=== PATIENT | male | born 1965 | race Caucasian/White ===

== ENCOUNTER 2024-02-15 19:17 | Emergency (ER) | payer BC ==
[~2024-02-15] VITALS: Ht 188 cm; Wt 124.0 kg
[2024-02-15 19:19] VITALS: TEMP 97.7
[2024-02-15] MEDS: acetaminophen 1,000mg/100ml IV 100 ML IV ONE (20:08)
[2024-02-15] MEDS: ondansetron/PF 4mg/2ml inj IV ONE (20:08)
[2024-02-15 20:16] LABS: BASOPHILS # (AUTO) 0.1 X10'3 (0-0.2); BASOPHILS % (AUTO) 0.7 % (0-1); EOSINOPHILS # (AUTO) 0.1 X10'3 (0-0.9); EOSINOPHILS % (AUTO) 0.8 % (0-6); HEMATOCRIT 48.6 % (42.0-52.0); HEMOGLOBIN 16.7 g/dl (14.0-17.9); LYMPHOCYTES % (AUTO) 9.1 % (21-51); MEAN CORPUSCULAR HEMOGLOBIN 30.8 PG (27.0-31.0); MEAN CORPUSCULAR HGB CONC 34.4 g/dL (33.0-36.5); MEAN CORPUSCULAR VOLUME 89.4 FL (78-98); MEAN PLATELET VOLUME 8.7 FL (7.4-10.4); MONOCYTES # (AUTO) 0.8 X10'3 (0-0.9); MONOCYTES % (AUTO) 7.1 % (2-12); NEUTROPHILS # (AUTO) 9.3 X10'3 (1.8-7.7); NEUTROPHILS % (AUTO) 82.3 % (42-75); PLATELET COUNT 237 X10'3 (140-440); RED BLOOD COUNT 5.44 X10'6 (4.70-6.10); RED CELL DISTRIBUTION WIDTH 13.7 % (11.5-14.5); WHITE BLOOD COUNT 11.3 X10'3 (4.5-11.0)
[2024-02-15 20:29] LABS: ALANINE AMINOTRANSFERASE 80 U/L (12-78); ALBUMIN 4.4 G/DL (3.4-5.0); ALBUMIN/GLOBULIN RATIO 1.2 (1.1-1.5); ALKALINE PHOSPHATASE 40 IU/L (46-116); ANION GAP 11 (8-16); ASPARTATE AMINO TRANSFERASE 21 U/L (10-37); BILIRUBIN,TOTAL 0.6 MG/DL (0.1-1.0); BLOOD UREA NITROGEN 8 MG/DL (7-18); BUN/CREATININE RATIO 6.3 (10.0-20.0); CALCIUM 8.9 MG/DL (8.5-10.1); CHLORIDE 105 MMOL/L (99-107); CREATININE 1.26 MG/DL (0.60-1.10); GLUCOSE 111 MG/DL (70-104); LIPASE 39 U/L (16-77); POTASSIUM 4.1 MMOL/L (3.5-5.1); SODIUM 141 MMOL/L (135-145); TOTAL CARBON DIOXIDE 24.8 MMOL/L (24-32); eCRCL 76 ML/MIN; eGFR 59 ML/MIN
[2024-02-15] MEDS ORDERED: PHEN-716 PO (21:23)
[2024-02-15] MEDS ORDERED: FLO0.4C PO (21:23)
[2024-02-15] MEDS ORDERED: HYDR-3973 PO (21:23)
[2024-02-15] MEDS ORDERED: ONDA8TAB13 PO (21:23)
[2024-02-15] MEDS: HYDROcodone/acetaminophen 10/325mg tab PO ONE (21:36)
[2024-02-15] MEDS: phenazopyridine 100mg tablet PO ONE (21:36)
[2024-02-15] MEDS: tamsulosin 0.4mg capsule PO SCH (21:37)
[2024-02-15 21:52] VITALS: BP 127/82; PULSE 71; RESP 16; O2SAT 95
== END 2024-02-15 21:54 | disposition home or self-care (01) ==
LOC: ER 19:18
DX: N20.0 Calculus of kidney (principal)
CPT/HCPCS: 36415; 74176; 80053; 83690; 85025; 96374; 96375; 99285; J0131; J2405

== ENCOUNTER 2024-02-17 15:58 | Inpatient (IN) | payer BC ==
[~2024-02-17] VITALS: Ht 188 cm; Wt 125.0 kg
[~2024-02-17 15:58] MED LIST: FLO0.4C PO; HYDR-3973 PO; ONDA8TAB13 PO; PHEN-716 PO
[2024-02-17] MEDS ORDERED: ketorolac trometh. 30mg/ml inj. IV ONE (17:35)
[2024-02-17] MEDS: ondansetron/PF 4mg/2ml inj IV ONE (18:21)
[2024-02-17] MEDS: ketorolac tromethamine 15mg/ml inj. IV ONE (18:22)
[2024-02-17] MEDS: normal saline 1000ml 1,000 ML IV ONE (18:22)
[2024-02-17 18:32] LABS: BASOPHILS # (AUTO) 0.1 X10'3 (0-0.2); BASOPHILS % (AUTO) 0.5 % (0-1); EOSINOPHILS % (AUTO) 0.1 % (0-6); HEMATOCRIT 46.7 % (42.0-52.0); LYMPHOCYTES # (AUTO) 0.9 X10'3 (1.1-4.8); LYMPHOCYTES % (AUTO) 6.1 % (21-51); MEAN CORPUSCULAR HEMOGLOBIN 30.6 PG (27.0-31.0); MEAN CORPUSCULAR HGB CONC 34.2 g/dL (33.0-36.5); MEAN CORPUSCULAR VOLUME 89.7 FL (78-98); MEAN PLATELET VOLUME 8.6 FL (7.4-10.4); MONOCYTES # (AUTO) 0.7 X10'3 (0-0.9); MONOCYTES % (AUTO) 5.2 % (2-12); NEUTROPHILS # (AUTO) 12.6 X10'3 (1.8-7.7); NEUTROPHILS % (AUTO) 88.1 % (42-75); PLATELET COUNT 262 X10'3 (140-440); RED BLOOD COUNT 5.21 X10'6 (4.70-6.10); RED CELL DISTRIBUTION WIDTH 13.7 % (11.5-14.5); WHITE BLOOD COUNT 14.3 X10'3 (4.5-11.0)
[2024-02-17 18:45] LABS: ALANINE AMINOTRANSFERASE 72 U/L (12-78); ALBUMIN 4.6 G/DL (3.4-5.0); ALBUMIN/GLOBULIN RATIO 1.4 (1.1-1.5); ALKALINE PHOSPHATASE 36 IU/L (46-116); ANION GAP 14 (8-16); ASPARTATE AMINO TRANSFERASE 25 U/L (10-37); BILIRUBIN,TOTAL 0.8 MG/DL (0.1-1.0); BLOOD UREA NITROGEN 11 MG/DL (7-18); BUN/CREATININE RATIO 6.4 (10.0-20.0); CALCIUM 9.4 MG/DL (8.5-10.1); CHLORIDE 104 MMOL/L (99-107); CREATININE 1.72 MG/DL (0.60-1.10); GLUCOSE 140 MG/DL (70-104); POTASSIUM 3.9 MMOL/L (3.5-5.1); SODIUM 141 MMOL/L (135-145); TOTAL CARBON DIOXIDE 22.9 MMOL/L (24-32); eCRCL 56 ML/MIN; eGFR 41 ML/MIN
[2024-02-17 19:14] LABS: BILIRUBIN,URINE NEGATIVE (Neg); CLARITY,URINE CLEAR (Clear); COLOR,URINE ORANGE (Yellow); GLUCOSE, URINE 100 mg/dl (Neg); KETONES,URINE 15 mg/dl (Neg); LEUKOCYTE ESTERASE ,URINE NEGATIVE (Neg); OCCULT BLOOD,URINE TRACE-INTACT (Neg); PROTEIN,URINE 30 mg/dl (Neg)
[2024-02-17 19:22] LABS: NITRITES, URINE NEGATIVE (Neg); UA COLLECTION TYPE CLN CATCH MIDSTREAM
[2024-02-17 19:26] LABS: BACTERIA,URINE FEW /HPF (Neg); MUCUS STRANDS MANY /LPF (Neg); SQUAMOUS EPITHELIAL CELL,UR FEW /LPF (FEW); WBC,URINE 0-4 /HPF (0-4)
[2024-02-17] MEDS ORDERED: magnesium Cl slow-release 64mg tablet PO PRN (19:30)
[2024-02-17] MEDS ORDERED: magnesium hydroxide 30ml (MOM) UD suspension PO PRN (19:30)
[2024-02-17] MEDS ORDERED: potassium Cl 20 mEq SR tablet PO PRN ×2 (19:30)
[2024-02-17] MEDS ORDERED: magnesium 2GM in 50ml NS 50 ML IV PRN (19:30)
[2024-02-17] MEDS ORDERED: acetaminophen 325mg tablet PO PRN (19:30)
[2024-02-17] MEDS ORDERED: magnesium 4gm in 100ml NS 100 ML IV PRN (19:30)
[2024-02-17] MEDS ORDERED: mag hydrox/Alum hydrox/simeth 30ml oral suspension PO PRN (19:30)
[2024-02-17] MEDS ORDERED: potassium Cl 40MEQ/1/2NS 520ml 520 ML IV PRN (19:30)
[2024-02-17] MEDS: normal saline 1000ml 1,000 ML IV SCH (19:54)
[2024-02-17] MEDS: K and/or MAG REPLACEMENT MC SCH (19:59)
[2024-02-17] MEDS: tamsulosin 0.4mg capsule PO SCH (21:00)
[2024-02-17] MEDS: HYDROcodone/acetaminophen 5mg/325mg tablet PO ONE (22:08)
[2024-02-18] VITALS (8 sets, daily range): BP systolic 127–147; BP diastolic 73–95; PULSE 63–73; RESP 16–18; TEMP 97.6–98.3; O2SAT 95–98
[2024-02-18] MEDS: heparin, porcine 5000 units/ml vial SQ SCH (01:30)
[2024-02-18] MEDS: CefTRIAXone/D5W-Rocephin 1gm 50 ML IV SCH (01:34)
[2024-02-18] MEDS: ondansetron/PF 4mg/2ml inj IV PRN (03:23)
[2024-02-18] MEDS: morphine 2 MG/ML inj. syringe IV PRN ×2 (03:23→21:30)
[2024-02-18] MEDS: INSULIN LISPRO 100 UNIT/ML INSULN.PEN MULTI-DOSE SQ ONE (04:35)
[2024-02-18] MEDS ORDERED: PANT40TA54 PO (04:59)
[2024-02-18] MEDS ORDERED: APIX2.5T PO (05:01)
[2024-02-18 07:11] LABS: BASOPHILS # (AUTO) 0.1 X10'3 (0-0.2); BASOPHILS % (AUTO) 0.8 % (0-1); EOSINOPHILS % (AUTO) 0.4 % (0-6); HEMATOCRIT 41.5 % (42.0-52.0); HEMOGLOBIN 14.2 g/dl (14.0-17.9); LYMPHOCYTES # (AUTO) 1.4 X10'3 (1.1-4.8); LYMPHOCYTES % (AUTO) 16.9 % (21-51); MEAN CORPUSCULAR HEMOGLOBIN 30.8 PG (27.0-31.0); MEAN CORPUSCULAR HGB CONC 34.2 g/dL (33.0-36.5); MEAN PLATELET VOLUME 8.4 FL (7.4-10.4); MONOCYTES # (AUTO) 0.8 X10'3 (0-0.9); MONOCYTES % (AUTO) 9.8 % (2-12); NEUTROPHILS # (AUTO) 5.8 X10'3 (1.8-7.7); NEUTROPHILS % (AUTO) 72.1 % (42-75); PLATELET COUNT 196 X10'3 (140-440); RED BLOOD COUNT 4.61 X10'6 (4.70-6.10); RED CELL DISTRIBUTION WIDTH 13.8 % (11.5-14.5); WHITE BLOOD COUNT 8.1 X10'3 (4.5-11.0)
[2024-02-18 07:32] LABS: ALBUMIN 3.6 G/DL (3.4-5.0); ANION GAP 11 (8-16); BLOOD UREA NITROGEN 11 MG/DL (7-18); CALCIUM 8.4 MG/DL (8.5-10.1); CHLORIDE 109 MMOL/L (99-107); CREATININE 1.37 MG/DL (0.60-1.10); GLUCOSE 90 MG/DL (70-104); POTASSIUM 3.7 MMOL/L (3.5-5.1); SODIUM 143 MMOL/L (135-145); TOTAL CARBON DIOXIDE 23.3 MMOL/L (24-32); eCRCL 70 ML/MIN; eGFR 54 ML/MIN
[2024-02-18] MEDS ORDERED: acetaminophen 325mg tablet PO PRN (12:55)
[2024-02-18] MEDS ORDERED: acetaminophen 1,000mg/100ml IV 100 ML IV ONE (12:55)
[2024-02-18] MEDS: aspirin/acetaminophen/caffeine tablet PO PRN (14:09)
[2024-02-18] MEDS ORDERED: iohexol 300 MG/1 ML 50ml polymer ONE (16:33)
[2024-02-19] VITALS (12 sets, daily range): BP systolic 123–139; BP diastolic 76–89; PULSE 61–76; RESP 12–18; TEMP 98.1; O2SAT 94–98
[2024-02-19] MEDS ORDERED: iohexol 300 MG/1 ML 50ml polymer ONE (07:19)
[2024-02-19] MEDS ORDERED: sevoflurane 250ml liquid IH ONE (07:30)
[2024-02-19] MEDS ORDERED: ondansetron/PF 4mg/2ml inj IV PRN (07:35)
[2024-02-19] MEDS ORDERED: labetalol 20mg/4ml (5mg/ml) syringe IV PRN (07:35)
[2024-02-19] MEDS ORDERED: enalaprilat dihydrate 2.5mg/2ml vial IV PRN (07:35)
[2024-02-19] MEDS ORDERED: morphine 2 MG/ML inj. syringe IV PRN (07:35)
[2024-02-19] MEDS: ringers solution, lacted 1,000 ML IV SCH (07:35)
[2024-02-19] MEDS ORDERED: proCHLORperazine 10 MG/2 ml inj IV PRN (07:35)
[2024-02-19] MEDS ORDERED: meperidine/PF 25mg/ml syringe IV PRN ×3 (07:35)
[2024-02-19] MEDS ORDERED: morphine 4 MG/ML inj SYRINge IV PRN (07:35)
[2024-02-19 07:38] LABS: BASOPHILS # (AUTO) 0.1 X10'3 (0-0.2); BASOPHILS % (AUTO) 0.7 % (0-1); EOSINOPHILS # (AUTO) 0.1 X10'3 (0-0.9); EOSINOPHILS % (AUTO) 0.9 % (0-6); HEMATOCRIT 41.4 % (42.0-52.0); HEMOGLOBIN 14.1 g/dl (14.0-17.9); LYMPHOCYTES # (AUTO) 1.1 X10'3 (1.1-4.8); LYMPHOCYTES % (AUTO) 15.5 % (21-51); MEAN CORPUSCULAR HEMOGLOBIN 30.7 PG (27.0-31.0); MEAN CORPUSCULAR VOLUME 90.4 FL (78-98); MEAN PLATELET VOLUME 8.4 FL (7.4-10.4); MONOCYTES # (AUTO) 0.6 X10'3 (0-0.9); MONOCYTES % (AUTO) 8.5 % (2-12); NEUTROPHILS # (AUTO) 5.2 X10'3 (1.8-7.7); NEUTROPHILS % (AUTO) 74.4 % (42-75); PLATELET COUNT 176 X10'3 (140-440); RED BLOOD COUNT 4.58 X10'6 (4.70-6.10); RED CELL DISTRIBUTION WIDTH 13.7 % (11.5-14.5)
[2024-02-19] MEDS ORDERED: midazolam 1 mg/ML 2ml injection ONE (07:39)
[2024-02-19] MEDS ORDERED: fentaNYL/PF 50MCG/1 ML 2ML syringe ONE (07:39)
[2024-02-19] MEDS ORDERED: propofol inj 20 ML IV ONE ×2 (07:40→08:03)
[2024-02-19] MEDS ORDERED: LIDOcaine 2% (20mg/ml) 5ml vial ONE (07:40)
[2024-02-19 07:55] LABS: ALBUMIN 3.4 G/DL (3.4-5.0); ANION GAP 10 (8-16); BLOOD UREA NITROGEN 12 MG/DL (7-18); BUN/CREATININE RATIO 6.3 (10.0-20.0); CALCIUM 8.4 MG/DL (8.5-10.1); CHLORIDE 108 MMOL/L (99-107); CREATININE 1.91 MG/DL (0.60-1.10); GLUCOSE 87 MG/DL (70-104); POTASSIUM 3.7 MMOL/L (3.5-5.1); SODIUM 143 MMOL/L (135-145); TOTAL CARBON DIOXIDE 24.8 MMOL/L (24-32); eCRCL 50 ML/MIN; eGFR 37 ML/MIN
[2024-02-19] MEDS ORDERED: meperidine/PF 25mg/ml syringe ONE (08:04)
[2024-02-19] MEDS ORDERED: CEPH500C2 PO (11:54)
[2024-02-19] MEDS ORDERED: HYDR-3973 PO (11:54)
[2024-02-19] MEDS ORDERED: PHEN-716 PO (11:54)
== END 2024-02-19 15:35 | disposition home or self-care (01) | DRG 661 ==
LOC: ER 15:58 → ED HOLD 19:34 → ORTHO 4S 02-18 04:15
PROVIDERS: ADMIT Student in an Organized Health Care Education/Training Program; ATTEND Family Medicine
PROC: 0T778DZ Dilation of Left Ureter with Intraluminal Device, Via Natural or Artificial Opening Endoscopic (ICD-10-PCS; 2024-02-19)
PROC: 0TC78ZZ Extirpation of Matter from Left Ureter, Via Natural or Artificial Opening Endoscopic (ICD-10-PCS; principal; 2024-02-19 07:30)
DX: N13.6 Pyonephrosis (principal); K21.9 Gastro-esophageal reflux disease without esophagitis; R51.9 Headache, unspecified; N17.0 Acute kidney failure with tubular necrosis; Z79.01 Long term (current) use of anticoagulants; Z86.718 Personal history of other venous thrombosis and embolism; Z87.442 Personal history of urinary calculi; Z90.49 Acquired absence of other specified parts of digestive tract
CPT/HCPCS: 96374; 99285; Z7506; Z7508; 36415; 74018; 76000; 80048; 80053; 81001; 82948; 85025; 87081; A4615; A4618; C1758; C1769; C1894; C2617; G0378; J0696; J1100; J1815; J1885; J2175; J2250; J2270; J2405; J2704; J3010; J3490; J7030; Q9967